=== PATIENT | female | born 1945 | race Caucasian/White ===

== ENCOUNTER 2020-07-12 15:33 | Inpatient (IN) | payer MEDICARE, BC ==
[~2020-07-12] VITALS: Ht 157.5 cm; Wt 74.4 kg
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
[2020-07-12] MEDS ORDERED: MECL-159 PO (16:15)
[2020-07-12] MEDS ORDERED: ASPI-869 PO (16:15)
[2020-07-12] MEDS ORDERED: OMEP20CA15 PO (16:15)
[2020-07-12] MEDS ORDERED: ZOLP12.52 PO (16:15)
[2020-07-12] MEDS ORDERED: LISI10TA29 PO (16:15)
[2020-07-12] MEDS ORDERED: FLUT1DIS28 INH (16:15)
[2020-07-12] MEDS ORDERED: ONDA4TAB11 PO (16:15)
[2020-07-12] MEDS ORDERED: METO25TA6 PO (16:15)
[2020-07-12] MEDS ORDERED: TRAM50TA2 PO (16:15)
[2020-07-12] MEDS ORDERED: CLON0.5T PO (16:15)
[2020-07-12] MEDS ORDERED: METO-295 PO (16:15)
[2020-07-12] MEDS ORDERED: SIMV40TA2 PO (16:15)
[2020-07-12] MEDS ORDERED: SENN-22 PO (16:15)
[2020-07-12] MEDS ORDERED: SERT100T PO (16:15)
[2020-07-12] MEDS ORDERED: QUET400T PO (16:15)
[2020-07-12] MEDS ORDERED: HYDR-3980 PO (16:15)
[2020-07-12] MEDS ORDERED: POTA500T PO (16:15)
[2020-07-12] MEDS ORDERED: VITAMIN D3 PO (16:15)
[2020-07-12] MEDS ORDERED: CYCL5TAB PO (16:15)
--- NOTE | 2020-07-12 16:44 | NUR ---
Called Shelby Callejas to inform her of pt. per Shelby, call back in a bit and speak to Rachele as she is almost off the clock
--- NOTE | 2020-07-12 17:08 | NUR ---
MD asked to have MHU called to clarify if patient still has to be seen by crisis team if she came in for voluntary psych admission. Per MHU, pt still has to be assessed. Called Rachele Smith at [phone] and went to voicemail,, left message for her to call back regarding patient.
--- NOTE | 2020-07-12 17:14 | NUR ---
pt complained of pain. 11/03. pt stated she has chronic back pain and she usually takes Hydrocodone 10mg. Dr. Jackson informed. also informed that we are awaiting call back from crisis team for eval. will attempt to call again in a few minutes.
[2020-07-12] MEDS ORDERED: HYDROCODONE/APAP 10-325 MG TABLET PO ONE (17:15)
[2020-07-12] MEDS ORDERED: HYDROCODONE/APAP 10-325 MG TABLET ONE (17:25)
--- NOTE | 2020-07-12 17:30 | NUR ---
pt stated that she has not eaten in a week. pt given dinner tray and eating in room.
--- NOTE | 2020-07-12 17:42 | NUR ---
Received call back from Rachele. Per Rachele, she is not on-call for crisis team and it's Marycarmen. Called Marycarmen Aguirre at [phone] to inform her of the patient. Marycarmen asked if patient's insurance is okay for admission and per admitting, pt's insurance is cleared for admission. Informed Marycarmen and she said she will be in to see pt in about an hour.
--- NOTE | 2020-07-12 18:06 | NUR ---
Asked pt if there was any family members she wanted to be notified of her admission. received contact information for her 2 sisters: Melisa Dougherty [phone] and Genoveva Hill [phone]. At 1752, attempted to call Melisa however went to voicemdil, left a message. At 1755, called Genoveva and informed her of pt's voluntary admission, verbalized understanding. At 1800, received called back from Melisa, also informed her of pt's voluntary admission, verbalized understanding. At 1805, left message for pt's primary physician Dr. Ori Do at [phone].
--- NOTE | 2020-07-12 19:09 | NUR ---
Marycarmen from crisis team at bedside to see pt. endorsed pt to street openings inspector.
--- NOTE | 2020-07-12 19:34 | NUR ---
Called for room, patient will be going to room 138-B [facility].
--- NOTE | 2020-07-12 19:45 | NUR ---
Checking patient chart, stated she has a potassium of 2.9. [facility] Emergency Notes stated her potassium was repleted at 3pm on 07/11/20. Notified MD Sawyer, awaiting potential orders.
--- NOTE | 2020-07-12 19:51 | NUR ---
Blood draw ordered by MD Sawyer to follow up on abnormal lab results for potassium.
--- NOTE | 2020-07-12 19:54 | NUR ---
distribution field technician in room to draw blood.
[2020-07-12 20:13] LABS: MAGNESIUM 1.4 mg/dL (1.8-2.4); POTASSIUM 4.4 mmol/L (3.5-5.1)
--- NOTE | 2020-07-12 20:17 | NUR ---
Potassium levels came back from lab to be 4.4.
--- NOTE | 2020-07-12 20:22 | NUR ---
Called for room d/t patient being moved to [facility] for psych overflow [id number].
--- NOTE | 2020-07-12 20:30 | NUR ---
Report given to ANGELITA Bright.
--- NOTE | 2020-07-12 20:34 | NUR ---
Pt. admitted to 3rd floor psych overflow 304, under care of Dr. Abraham and Bruce. Belongs List completed.
[2020-07-12] MEDS ORDERED: BLOOD SUGAR DIAGNOSTIC 1 EACH STRIP VI ONE (21:00)
[2020-07-12] MEDS ORDERED: MAG HYDROX/AL HYDROX/SIMETH 30 ML LIQUID UDC PO PRN (21:00)
--- NOTE | 2020-07-12 21:00 | NUR ---
Received pt from ER as a new admission for voluntary psych evaluation. Pt is AOx2/3, slightly confused as to where she is, but does know her name/. No signs of acute distress, pt is cooperative. I did notice bruising on her left thigh. No IV access. Will continue to monitor.
[2020-07-12 21:44] VITALS: BP 141/84
[2020-07-12] MEDS: ACETAMINOPHEN 325 MG TABLET PO PRN (22:04)
[2020-07-12] MEDS: TEMAZEPAM 7.5 MG CAPSULE PO PRN (22:04)
[2020-07-13] MEDS: LORAZEPAM 1 MG TABLET PO PRN ×3 (00:52→20:13)
--- NOTE | 2020-07-13 06:55 | NUR ---
End of Shift: Pt c/o pain in her chest/back, admin Tylenol, pain level decreased. Pt requested some sleeping medication, admin Restoril, some relief attained. Pt slept intermittently throughout the night. Vital signs WNL, patient kept comfortable. Safety precautions in place, bed is in low locked position. Will endorse to the oncoming day shift nurse.
[2020-07-13 07:33] VITALS: BP 99/60
[2020-07-13] MEDS: ACETAMINOPHEN 325 MG TABLET PO PRN (10:15)
[2020-07-13 11:54] VITALS: BP 119/63
--- NOTE | 2020-07-13 13:54 | NUR ---
Social Work Note/Substance Abuse Intervention: Patient was provided with a brief substance abuse intervention and referred to [facility] ([phone]), [facility] ([phone]), and [facility] ([phone]).
--- NOTE | 2020-07-13 13:54 | NUR ---
SW Family Contact: This SW contacted patient's sister Melisa ([phone]) but was unable to gather collateral. This SW left a voicemail to call back.
--- NOTE | 2020-07-13 13:54 | NUR ---
SW Initial Discharge Plan: Patient currently is homeless and will need a facility. Patient wanted this SW to find a facility. This SW contacted patient's sister Melisa ([phone]) but was unable to gather collateral. This SW left a voicemail to call back. This SW will work with the MD, treatment team, and patient to coordinate proper discharge.
[2020-07-13] MEDS ORDERED: ONDANSETRON ODT 4 MG TAB.RAPDIS SL PRN (14:45)
[2020-07-13] MEDS ORDERED: MECLIZINE HCL 25 MG TABLET PO PRN (14:45)
[2020-07-13] MEDS: PANTOPRAZOLE SODIUM 40 MG TABLET.DR PO SCH (15:03)
[2020-07-13] MEDS: CHOLECALCIFEROL 1,000 UNIT TABLET PO SCH (15:03)
--- NOTE | 2020-07-13 15:07 | NUR ---
SW Family Contact: This SW contacted patient's sister Melisa ([phone]) to gather collateral. Per Melisa, she stated that patient has no where to go and that she will need a nursing facility.
[2020-07-13 16:00] VITALS: BP 141/80
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
--- NOTE | 2020-07-13 16:14 | NUR ---
SW Family Contact: This SW spoke with patient's sister Nenita ([phone]) who is involved in patient's care. However, she stated she does not live local. Nenita stated she is concerned about patient and where she will stay. This SW discussed discharge and treatment plan with sister.
[2020-07-13] MEDS: METOPROLOL TARTRATE 25 MG TABLET PO SCH (16:16)
[2020-07-13] MEDS ORDERED: BISACODYL 10 MG SUPP.RECT RC ONE (19:50)
[2020-07-13 20:03] VITALS: BP 140/76
--- NOTE | 2020-07-13 20:15 | NUR ---
Received patient awake in bed. a/o x4. Patient given Ativan 1mg po prn for anxiety. Pt. says she is "thinking too much." Pt. verbalized the home situation and appears very worried and stressed out. vs wnl. Pt. requesting for dulcolax supp. Called out to Dr. Ramírez assembler convertible top and received order. Patient given supp. as ordered for constipation. Pt. denies any pain or discomfort. No resp. distress noted. All needs attended. Will continue to monitor and assess.
--- NOTE | 2020-07-13 21:30 | NUR ---
Dr. Lew came by to see patient. All needs attended.
[2020-07-13] MEDS: TEMAZEPAM 7.5 MG CAPSULE PO PRN (22:04)
[2020-07-13] MEDS: TRAZODONE 50 MG TABLET PO SCH (22:04)
--- NOTE | 2020-07-13 22:05 | NUR ---
Patient given Restoril 7.5mg po prn for sleep. Will continue to monitor and assess.
[2020-07-14 04:03] VITALS: BP 118/63
--- NOTE | 2020-07-14 06:15 | NUR ---
Patient asleep in bed. Slept 7 hours. Will continue to monitor and assess.
[2020-07-14 06:20] LABS: BILIRUBIN,TOTAL 0.2 mg/dL (0.2-1.0); CREATININE 0.7 mg/dL (0.6-1.3); POTASSIUM 3.6 mmol/L (3.5-5.1); TOTAL PROTEIN, SERUM 6.1 g/dL (6.4-8.2)
[2020-07-14] MEDS: PANTOPRAZOLE SODIUM 40 MG TABLET.DR PO SCH (06:25)
[2020-07-14 07:30] VITALS: BP 143/81
[2020-07-14] MEDS ORDERED: ASPIRIN EC 325 MG TABLET.DR PO ONE (09:00)
[2020-07-14] MEDS: CHOLECALCIFEROL 1,000 UNIT TABLET PO SCH (09:14)
[2020-07-14] MEDS: SENNOSIDES/DOCUSATE SODIUM TABLET PO SCH (09:14)
[2020-07-14] MEDS: HYDROCODONE/APAP 10-325 MG TABLET PO PRN (09:17)
[2020-07-14] MEDS: LISINOPRIL 10 MG TABLET PO SCH (09:18)
[2020-07-14] MEDS: METOPROLOL TARTRATE 25 MG TABLET PO SCH ×2 (09:19→17:06)
--- NOTE | 2020-07-14 09:24 | NUR ---
SW SNF Referral: This SW sent clinicals to priti Rehman ([phone]) for [facility] SNF placement. This SW faxed H & P notes, progress notes, and medication list.
--- NOTE | 2020-07-14 10:00 | NUR ---
CALLED AND NOTIFIED DR ROCK RE PATIENTS MAGNESSIUM LEVEL ON THE WAS 1.4 WITH NO REPLACEMENT ORDER STATED OKAY WILL CHECK.
--- NOTE | 2020-07-14 10:46 | NUR ---
SW SNF Contact: This SW sent clinicals to priti Rehman ([phone]) for [facility] SNF who stated patient is accepted.
[2020-07-14] MEDS: FLUTICASONE/VILANTEROL 1 EACH BLST.W.DEV INH SCH (15:26)
[2020-07-14 16:00] VITALS: BP 107/59
--- NOTE | 2020-07-14 17:28 | NUR ---
PATIENT HAS EPISODES FEELING VERY DEPRESSED TO THE EXTENT OF CRYING SHE ATTEMPTS TO TELL HER FAMILY STORY BUT REMAINS COMPLIANT AND COOPERATIVE WITH MEDICATIONS AND CARE DENIES SI AT THIS TIME.
[2020-07-14] MEDS: LORAZEPAM 1 MG TABLET PO PRN (18:20)
--- NOTE | 2020-07-14 18:21 | NUR ---
PATIENT STATED FEELING VERY ANXIOUS REQUESTED FOR CALMING MEDICATION MEDICATED WITH ATIVAN ORDERED PATIENT INSTRUCTED TO ATTEMPT TO RELAX AND VERBALISE FEELINGS MADE COMFORTABLE WILL CONTINUE TO OBSERVE.
[2020-07-14 20:04] VITALS: BP 113/64
[2020-07-14] MEDS: TRAZODONE 50 MG TABLET PO SCH (20:28)
[2020-07-14] MEDS: SIMVASTATIN 40 MG TABLET PO SCH (20:28)
[2020-07-14] MEDS ORDERED: TRAZODONE 100 MG TABLET PO SCH (21:30)
[2020-07-14] MEDS ORDERED: TRAZODONE 50 MG TABLET PO ONE (21:45)
[2020-07-14] MEDS: CLONAZEPAM 0.5 MG TABLET PO SCH (21:54)
[2020-07-14] MEDS: TEMAZEPAM 7.5 MG CAPSULE PO PRN (22:44)
--- NOTE | 2020-07-15 02:04 | NUR ---
AAOx3-4 Watching TV upon initial rounds. Seen by Dr Lew this evening. Patient seems depressed and said she couldn't have any good sleep. Ordered Trazadone 50 mg x1 and clonopin as well. Patient compliant with meds. Had received extra trazadone 50mg with her evening dose. Klonopin 0.25 also given as well. Needs attended. VSS. Will monitor patient. Continent of bowel and bladder. No BM noted this shift. Kept comfortable.
[2020-07-15 04:03] VITALS: BP 107/56
[2020-07-15] MEDS: PANTOPRAZOLE SODIUM 40 MG TABLET.DR PO SCH (06:11)
--- NOTE | 2020-07-15 06:30 | NUR ---
End of shift notes: Slept for seven hours throughout the shift. Seen by Dr Lew. Meds changed like per MD's order. Had trazadone 50mg po extra dose plus clonopin 15 mg. Denies any pain nor any discomfort. Will monitor patient. No behavioral issues noted.
[2020-07-15] MEDS: CHOLECALCIFEROL 1,000 UNIT TABLET PO SCH (08:02)
[2020-07-15] MEDS: SENNOSIDES/DOCUSATE SODIUM TABLET PO SCH (08:02)
[2020-07-15] MEDS: METOPROLOL TARTRATE 25 MG TABLET PO SCH ×2 (08:03→16:06)
[2020-07-15] MEDS: LISINOPRIL 10 MG TABLET PO SCH (08:03)
[2020-07-15] MEDS: CLONAZEPAM 0.5 MG TABLET PO SCH ×2 (08:03→16:06)
[2020-07-15] MEDS: FLUTICASONE/VILANTEROL 1 EACH BLST.W.DEV INH SCH (08:07)
[2020-07-15] MEDS: ASPIRIN EC 325 MG TABLET.DR PO SCH (08:07)
[2020-07-15] MEDS: MAGNESIUM HYDROXIDE 30 ML LIQUID UDC PO PRN (11:21)
[2020-07-15 12:29] VITALS: BP 106/55
[2020-07-15] MEDS: LORAZEPAM 1 MG TABLET PO PRN (14:55)
--- NOTE | 2020-07-15 14:56 | NUR ---
Ativan 1mg Po given per md orders pt is crying and feeling hopelessness
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
[2020-07-15 16:10] VITALS: BP 117/71
[2020-07-15 20:00] VITALS: BP 104/67
[2020-07-15] MEDS: TRAZODONE 100 MG TABLET PO SCH (20:39)
[2020-07-15] MEDS: SIMVASTATIN 40 MG TABLET PO SCH (20:39)
[2020-07-15] MEDS: TEMAZEPAM 7.5 MG CAPSULE PO PRN (21:55)
[2020-07-16] MEDS: LORAZEPAM 1 MG TABLET PO PRN ×2 (00:22→23:46)
[2020-07-16] MEDS: ACETAMINOPHEN 325 MG TABLET PO PRN (00:23)
[2020-07-16 04:00] VITALS: BP 101/57
[2020-07-16] MEDS: PANTOPRAZOLE SODIUM 40 MG TABLET.DR PO SCH (06:38)
--- NOTE | 2020-07-16 06:40 | NUR ---
PATIENT ASLEEP BUT AROUSABLE, NO COMPLAIN OF PAIN, PATIENT WITH EPISODE OF ANXIETY AND INABILITY TO SLEEP, MEDICATED ORDERED WITH NO ADVERSE REACTION. PATIENT CALM, COOPERATIVE WITH CARE AND MEDICATION, CONT TO MONITOR.
--- NOTE | 2020-07-16 07:30 | NUR ---
Received patient asleep in bed. on room air.no signs of acute distress. bed locked and in low position. side rails up x 3. call light within reach. will continue to monitor.
[2020-07-16 08:00] VITALS: BP 122/66
[2020-07-16] MEDS: SENNOSIDES/DOCUSATE SODIUM TABLET PO SCH (08:23)
[2020-07-16] MEDS: CLONAZEPAM 0.5 MG TABLET PO SCH ×2 (08:24→16:20)
[2020-07-16] MEDS: ASPIRIN EC 325 MG TABLET.DR PO SCH (08:24)
[2020-07-16] MEDS: CHOLECALCIFEROL 1,000 UNIT TABLET PO SCH (08:24)
[2020-07-16] MEDS: LISINOPRIL 10 MG TABLET PO SCH (08:30)
[2020-07-16] MEDS: METOPROLOL TARTRATE 25 MG TABLET PO SCH ×2 (08:30→16:38)
[2020-07-16] MEDS: FLUTICASONE/VILANTEROL 1 EACH BLST.W.DEV INH SCH (08:33)
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
--- NOTE | 2020-07-16 11:05 | NUR ---
Individual Therapy: green chain worker met with patient for brief counseling to help address patient's presenting problem depression. Patient appeared sad and depressed. She was tearful at this time and anxious. She stated she feels hopeless and helpless of her husbands situation and that she feels "heartbroken". Patient actively listened and helped patient explore her emotions.
[2020-07-16] MEDS: TRAMADOL HCL 50 MG TABLET PO PRN (11:54)
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
[2020-07-16 16:00] VITALS: BP 108/58
[2020-07-16] MEDS: HYDROCODONE/APAP 10-325 MG TABLET PO PRN (18:27)
--- NOTE | 2020-07-16 18:35 | NUR ---
Patient awake in bed. AOx4. On room air. no signs of acute distress. Patient verbalizes feelings of hopelessness. Encouraged expression of feelings. Patient stated she felt a little relief after talking about feelings. Patient stated she wanted to speak to someone about discharge. Informed patient Upset Operator will be informed to talk to her about discharge concerns. Patient denies SI/HI. Patient compliant with care and medications. Will endorse to incoming shift for continuity of care.
--- NOTE | 2020-07-16 19:30 | NUR ---
Received pt in bed, awake and verbally responsive. No s/s of respiratory distress, no pain or discomfort reported. Patient denies SI/HI. Safety measures initiated, will continue to monitor.
[2020-07-16 20:00] VITALS: BP 101/55
[2020-07-16] MEDS: SIMVASTATIN 40 MG TABLET PO SCH (21:21)
[2020-07-16] MEDS: TRAZODONE 100 MG TABLET PO SCH (21:21)
[2020-07-16] MEDS: ZOLPIDEM 5 MG TABLET PO PRN (22:13)
[2020-07-17] MEDS: ACETAMINOPHEN 325 MG TABLET PO PRN ×2 (00:39→23:53)
[2020-07-17] MEDS ORDERED: diphenhydrAMINE 25 MG CAP PO ONE ×2 (03:15)
[2020-07-17] MEDS: CYCLOBENZAPRINE HCL 10 MG TABLET PO PRN (05:17)
[2020-07-17] MEDS: PANTOPRAZOLE SODIUM 40 MG TABLET.DR PO SCH (06:30)
--- NOTE | 2020-07-17 06:43 | NUR ---
Pt in bed, A&Ox4. No s/s of respiratory distress, denies pain or discomfort. Encouraged to express feelings. Complained she haven't slept well. Denies any suicidal ideation or thoughts. Medications tolerated well. Safety measures maintained at all times, all needs attended.
--- NOTE | 2020-07-17 07:35 | NUR ---
Received pt. resting in bed. AOx4. on room air. no signs of acute distress. patient has no complaints of pain or discomfort at this time. bed locked and in low position for safety. will continue to monitor.
[2020-07-17] MEDS: ASPIRIN EC 325 MG TABLET.DR PO SCH (09:29)
[2020-07-17] MEDS: SENNOSIDES/DOCUSATE SODIUM TABLET PO SCH (09:29)
[2020-07-17] MEDS: LISINOPRIL 10 MG TABLET PO SCH (09:29)
[2020-07-17] MEDS: CHOLECALCIFEROL 1,000 UNIT TABLET PO SCH (09:29)
[2020-07-17] MEDS: METOPROLOL TARTRATE 25 MG TABLET PO SCH ×2 (09:30→16:34)
[2020-07-17] MEDS: CLONAZEPAM 0.5 MG TABLET PO SCH ×2 (09:30→16:33)
[2020-07-17] MEDS: FLUTICASONE/VILANTEROL 1 EACH BLST.W.DEV INH SCH (09:34)
--- NOTE | 2020-07-17 11:33 | NUR ---
WOUND CARE CONSULT: PT PRESENTS WITH PINK RAISED AREAS TO CHIN, PRESENT ON ADMISSION. PT IS SCRATCHING AT HER CHIN. DEFER TO PMD FOR SKIN CONDITION, UNKNOWN ETIOLOGY. RN TO DISCUSS WITH PMD TODAY. 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 WILL SEE PRN. CURRENT LUC SCORE IS 20.
[2020-07-17 12:00] VITALS: BP 109/63
--- NOTE | 2020-07-17 13:02 | NUR ---
Individual Therapy: concrete worker met with patient for brief counseling to help address patient's presenting problem depression. Patient appeared depressed and sad. She did appear withdrawn. This SW encouraged pt to interact and engage with peers/group. Patient refused and stated "I prefer to stay in bed and I feel sad". This SW helped pt express her emotions and actively listened to this SW.
[2020-07-17] MEDS: LORAZEPAM 1 MG TABLET PO PRN ×2 (13:18→23:52)
[2020-07-17] MEDS: NUTRISOURCE FIBER 4 GM PACKET PO SCH ×2 (13:18→16:34)
[2020-07-17 16:00] VITALS: BP 106/64
--- NOTE | 2020-07-17 17:28 | NUR ---
Gps/Value Stream Leader- Received report from Echo De Guzman. Patient preferred to eat dinner first before coming down to MHU
--- NOTE | 2020-07-17 18:15 | NUR ---
Transferred patient to MHU. Patient alert and oriented x 4. on room air. no signs of acute distress. patient belongings brought to MHU with patient. Patient report given to MHU nurse for continuity of care.
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
[2020-07-17 20:01] VITALS: BP 117/77
[2020-07-17] MEDS: SIMVASTATIN 40 MG TABLET PO SCH (20:26)
[2020-07-17] MEDS: TRAZODONE 100 MG TABLET PO SCH (20:26)
[2020-07-17] MEDS: ZOLPIDEM 5 MG TABLET PO PRN (21:54)
[2020-07-17] MEDS: diphenhydrAMINE 25 MG CAP PO PRN (22:45)
--- NOTE | 2020-07-18 00:37 | NUR ---
RECEIVED PATIENT AWAKE. SHE APPEARED ANXIOUS BUT DENIED SI/HI. ADMITTED TO BEING SAD OCCASIONALLY AND INABILITY TO SLEEP. AFTER ASSESSMENT SLEEP MEDICATION WAS GIVEN WITH LITTLE EFFECT. SHE HAD ONE EPISODE OF ANXIETY AND WAS GIVEN TAB LORAZEPAM WITH GOOD EFFECT. SHE IS CALM AND COOPERATIVE WITH CARE AND MEDICATION. VISUAL CHECKS MADE ON HER FOR SAFETY. WILL CONTINUE TO MONITOR.
--- NOTE | 2020-07-18 06:33 | NUR ---
SHE SLEPT FOR 4;30 HOURS.
[2020-07-18] MEDS: PANTOPRAZOLE SODIUM 40 MG TABLET.DR PO SCH (06:42)
[2020-07-18 07:30] VITALS: BP 141/68
[2020-07-18 08:00] LABS: THYROID STIMULATING HORMONE 1.899 mIU/mL (0.358-3.740)
[2020-07-18 08:15] LABS: MAGNESIUM 1.9 mg/dL (1.8-2.4); PHOSPHOROUS 4.5 mg/dL (2.5-4.9)
[2020-07-18] MEDS: ASPIRIN EC 325 MG TABLET.DR PO SCH (08:35)
[2020-07-18] MEDS: CHOLECALCIFEROL 1,000 UNIT TABLET PO SCH (08:35)
[2020-07-18] MEDS: CLONAZEPAM 0.5 MG TABLET PO SCH ×2 (08:35→16:46)
[2020-07-18] MEDS: LISINOPRIL 10 MG TABLET PO SCH (08:36)
[2020-07-18] MEDS: METOPROLOL TARTRATE 25 MG TABLET PO SCH ×2 (08:36→16:45)
[2020-07-18] MEDS: HYDROCODONE/APAP 10-325 MG TABLET PO PRN ×2 (08:49→16:45)
[2020-07-18] MEDS: FLUTICASONE/VILANTEROL 1 EACH BLST.W.DEV INH SCH (09:31)
[2020-07-18] MEDS: SENNOSIDES/DOCUSATE SODIUM TABLET PO SCH (09:32)
[2020-07-18] MEDS: NUTRISOURCE FIBER 4 GM PACKET PO SCH ×3 (09:32→17:00)
[2020-07-18] MEDS: TRAMADOL HCL 50 MG TABLET PO PRN (13:36)
[2020-07-18] MEDS: LORAZEPAM 1 MG TABLET PO PRN ×2 (13:42→22:18)
[2020-07-18 16:00] VITALS: BP 128/74
[2020-07-18 20:05] VITALS: BP 142/72
[2020-07-18] MEDS: TRAZODONE 100 MG TABLET PO SCH (20:23)
[2020-07-18] MEDS: SIMVASTATIN 40 MG TABLET PO SCH (20:23)
[2020-07-18] MEDS: ZOLPIDEM 5 MG TABLET PO PRN (21:16)
[2020-07-18] MEDS: diphenhydrAMINE 25 MG CAP PO PRN (22:18)
--- NOTE | 2020-07-19 05:49 | NUR ---
Patient slept 4 hours and 30 minutes. All needs attended.
[2020-07-19] MEDS: PANTOPRAZOLE SODIUM 40 MG TABLET.DR PO SCH (06:01)
[2020-07-19 07:30] VITALS: BP 102/51
[2020-07-19] MEDS: SENNOSIDES/DOCUSATE SODIUM TABLET PO SCH (08:29)
[2020-07-19] MEDS: CLONAZEPAM 0.5 MG TABLET PO SCH ×2 (08:29→17:30)
[2020-07-19] MEDS: ASPIRIN EC 325 MG TABLET.DR PO SCH (08:30)
[2020-07-19] MEDS: FLUTICASONE/VILANTEROL 1 EACH BLST.W.DEV INH SCH (08:30)
[2020-07-19] MEDS: METOPROLOL TARTRATE 25 MG TABLET PO SCH ×2 (08:31→17:30)
[2020-07-19] MEDS: LISINOPRIL 10 MG TABLET PO SCH (08:31)
[2020-07-19] MEDS: NUTRISOURCE FIBER 4 GM PACKET PO SCH ×3 (08:39→17:30)
[2020-07-19] MEDS: CHOLECALCIFEROL 1,000 UNIT TABLET PO SCH (08:41)
[2020-07-19] MEDS: HYDROCODONE/APAP 10-325 MG TABLET PO PRN ×2 (08:43→18:30)
[2020-07-19 11:31] LABS: *BILIRUBIN,URIN NEGATIVE (NEGATIVE); *BLOOD, URINE NEGATIVE (NEGATIVE); *CLARITY,URINE CLEAR (CLEAR); *COLOR,URINE YELLOW (YELLOW); *KETONES,URINE NEGATIVE (NEGATIVE); *UROBILINOGEN,URINE 0.2 E.U./dl (NORMAL); LEUKOCYTE ESTERASE ,URINE NEGATIVE (NEGATIVE); NITRITE, URINE NEGATIVE (NEGATIVE); UGLUCOSE NEGATIVE (NEGATIVE)
[2020-07-19 16:00] VITALS: BP 115/68
[2020-07-19] MEDS: LORAZEPAM 1 MG TABLET PO PRN (18:30)
[2020-07-19 20:02] VITALS: BP 152/74
[2020-07-19] MEDS: SIMVASTATIN 40 MG TABLET PO SCH (20:42)
[2020-07-19] MEDS: TRAZODONE 100 MG TABLET PO SCH (20:43)
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
[2020-07-19] MEDS: ZOLPIDEM 5 MG TABLET PO PRN (22:14)
[2020-07-19] MEDS: diphenhydrAMINE 25 MG CAP PO PRN (23:18)
[2020-07-20] MEDS: LORAZEPAM 1 MG TABLET PO PRN ×2 (00:57→12:03)
[2020-07-20] MEDS: PANTOPRAZOLE SODIUM 40 MG TABLET.DR PO SCH (06:42)
--- NOTE | 2020-07-20 06:54 | NUR ---
patient slept for approx 6.30 hrs through the night. Will continue to monitor.
[2020-07-20 07:19] LABS: BASOPHILS % (AUTO) 0.9 % (0.0-2.0); EOSINOPHILS # (AUTO) 0.1 K/uL (0.0-0.7); EOSINOPHILS % (AUTO) 1.6 % (0.0-7.0); HEMATOCRIT 37.5 % (31.2-41.9); HEMOGLOBIN 12.6 g/dL (10.9-14.3); LYMPHOCYTES # (AUTO) 2.2 K/uL (20.0-40.0); LYMPHOCYTES % (AUTO) 45.2 % (20.5-51.5); MEAN CORPUSCULAR HEMOGLOBIN 30.8 uug (24.7-32.8); MEAN CORPUSCULAR HGB CONC 34 g/dL (32.3-35.6); MEAN CORPUSCULAR VOLUME 91.6 fL (75.5-95.3); MONOCYTES # (AUTO) 0.6 K/uL (2.0-10.0); MONOCYTES % (AUTO) 12.8 % (0.0-11.0); NEUTROPHILS # (AUTO) 1.9 K/uL (1.8-8.9); NEUTROPHILS % (AUTO) 39.5 % (38.5-71.5); PLATELET COUNT (AUTO) 234 K/uL (179-408); RED BLOOD CELL COUNT(AUTO) 4.09 MIL/uL (3.63-4.92); WHITE BLOOD COUNT (AUTO) 4.8 K/uL (3.8-11.8)
--- NOTE | 2020-07-20 07:30 | NUR ---
Received report from ANGELITA Lozano. All questions, comments, and concerns were addressed. Received patient awake, in her assigned room. Bed is in low and locked position.
[2020-07-20 07:33] LABS: BILIRUBIN,TOTAL 0.3 mg/dL (0.2-1.0); CREATININE 0.8 mg/dL (0.6-1.3); MAGNESIUM 1.7 mg/dL (1.8-2.4); PHOSPHOROUS 4.5 mg/dL (2.5-4.9); POTASSIUM 4.1 mmol/L (3.5-5.1); TOTAL PROTEIN, SERUM 6.1 g/dL (6.4-8.2)
[2020-07-20] MEDS: ASPIRIN EC 325 MG TABLET.DR PO SCH (08:29)
[2020-07-20 08:30] VITALS: BP 90/48
[2020-07-20] MEDS: METOPROLOL TARTRATE 25 MG TABLET PO SCH ×2 (08:30→16:01)
[2020-07-20] MEDS: CLONAZEPAM 0.5 MG TABLET PO SCH ×2 (08:30→16:52)
[2020-07-20] MEDS: SENNOSIDES/DOCUSATE SODIUM TABLET PO SCH (08:30)
[2020-07-20] MEDS: CHOLECALCIFEROL 1,000 UNIT TABLET PO SCH (08:30)
[2020-07-20] MEDS: HYDROCODONE/APAP 10-325 MG TABLET PO PRN ×3 (08:31→22:10)
[2020-07-20] MEDS: FLUTICASONE/VILANTEROL 1 EACH BLST.W.DEV INH SCH (08:32)
[2020-07-20] MEDS: NUTRISOURCE FIBER 4 GM PACKET PO SCH ×3 (08:40→17:00)
[2020-07-20] MEDS ORDERED: MAGNESIUM OXIDE 400 MG TABLET PO ONE (09:15)
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
[2020-07-20 12:00] VITALS: BP 109/63
[2020-07-20] MEDS: TRAMADOL HCL 50 MG TABLET PO PRN (12:44)
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
[2020-07-20 15:20] VITALS: BP 108/55
[2020-07-20 17:41] LABS: NEUTROPHILS % (MANUAL) 37 % (42-75)
[2020-07-20 17:42] LABS: BAND % (MANUAL) 0 % (0-10); EOSINOPHILS % (MANUAL) 2 % (0-8); LYMPHOCYTES % (MANUAL) 51 % (20-40); MONOCYTES % (MANUAL) 10 % (2-10)
--- NOTE | 2020-07-20 19:00 | NUR ---
Patient alert oriented, patient cooperative with care and medication, patient still has episode of anxiety manifested by generalized body and head pain and complain of insomnia, will medicated as ordered, cont to monitor.
[2020-07-20 20:01] VITALS: BP 128/81
[2020-07-20] MEDS: TRAZODONE 100 MG TABLET PO SCH (20:17)
[2020-07-20] MEDS: SIMVASTATIN 40 MG TABLET PO SCH (20:17)
[2020-07-20] MEDS ORDERED: ZOLPIDEM 5 MG TABLET PO PRN ×2 (20:30)
--- NOTE | 2020-07-20 22:15 | NUR ---
patient still awake, ambien not effective at this time. offer food and juice. Patient complain of back pain 8/10 given narco as ordered cont to monitor.
--- NOTE | 2020-07-21 05:21 | NUR ---
Patient stayed in her room most of the night, slept 7.5 hrs, patient calm and cooperative, cont to monitor.
[2020-07-21] MEDS: PANTOPRAZOLE SODIUM 40 MG TABLET.DR PO SCH (06:18)
[2020-07-21 07:30] VITALS: BP 127/60
[2020-07-21] MEDS: FLUTICASONE/VILANTEROL 1 EACH BLST.W.DEV INH SCH (08:36)
[2020-07-21] MEDS: ASPIRIN EC 325 MG TABLET.DR PO SCH (08:36)
[2020-07-21] MEDS: METOPROLOL TARTRATE 25 MG TABLET PO SCH ×2 (08:37→16:43)
[2020-07-21] MEDS: CLONAZEPAM 0.5 MG TABLET PO SCH ×2 (08:37→16:42)
[2020-07-21] MEDS: CHOLECALCIFEROL 1,000 UNIT TABLET PO SCH (08:38)
[2020-07-21] MEDS: SENNOSIDES/DOCUSATE SODIUM TABLET PO SCH (08:38)
[2020-07-21] MEDS: NUTRISOURCE FIBER 4 GM PACKET PO SCH ×3 (08:52→16:43)
--- NOTE | 2020-07-21 09:00 | NUR ---
Received pt in assigned room, A&Ox4, able to verbalize needs. Calm at this time, no acute distress noted. Pt denies pain/discomfort at this time. Due medications given per order, pt adherent with prescribed medication regimen. Upon interview, pt denied SI/HI/AH/VH, was able to verbally contract for safety. Pt able to perform self care and ADLs. Pt able to safely ambulate. Safety ensured. Pt to be transferred to Med/Surg unit this am. Will continue to monitor.
--- NOTE | 2020-07-21 10:00 | NUR ---
Pt transferred to Med/Surg unit. Report given by Charge Nurse Fuad to MS nurse.
--- NOTE | 2020-07-21 10:00 | NUR ---
RECEIVED PATIENT FROM MENTAL HEALTH UNIT AN OVER FLOW 75 YEARS OLD ALERT AND ORIENTED AT THIS TIME WITH DX OF PSYCHOSIS PLACED INTO BED FIXED AND MADE COMFORTABLE DENIES SI WILL CONTINUE TO PROVIDE SAFE AND THERAPEUTIC ENVIRONMENT AT ALL TIMES.
[2020-07-21] MEDS: SERTRALINE HCL 50 MG TABLET PO SCH (10:34)
[2020-07-21] MEDS: HYDROCODONE/APAP 10-325 MG TABLET PO PRN (10:46)
--- NOTE | 2020-07-21 10:46 | NUR ---
PATIENT C/O HAVING SEVERE GENERALISED PAIN ESPECIALLY IN THE HEAD MEDICATED WITH NORCO ORDERED MADE COMFORTABLE WILL CONTINUE TO OBSERVE.
--- NOTE | 2020-07-21 11:52 | NUR ---
SEEN AND EXAMINED BY [facility] PROVIDER WITH NEW ORDERS AND NOTED.
[2020-07-21 15:41] VITALS: BP 115/67
[2020-07-21] MEDS: ACETAMINOPHEN 325 MG TABLET PO PRN (18:11)
--- NOTE | 2020-07-21 18:11 | NUR ---
STATED HAS A HEADACHE REQUESTED FOR TYLENOL GIVEN ORDERED MADE COMFORTABLE COMPLIANT WITH MEDICATIONS AND CARE AT THIS TIME.
[2020-07-21 20:00] VITALS: BP 131/68
[2020-07-21] MEDS: TRAZODONE 100 MG TABLET PO SCH (20:37)
[2020-07-21] MEDS: SIMVASTATIN 40 MG TABLET PO SCH (20:37)
[2020-07-21] MEDS: ZOLPIDEM 5 MG TABLET PO PRN (22:06)
[2020-07-21] MEDS: LORAZEPAM 1 MG TABLET PO PRN (23:41)
[2020-07-22 04:00] VITALS: BP 114/64
[2020-07-22] MEDS: LORAZEPAM 1 MG TABLET PO PRN ×3 (04:33→22:44)
--- NOTE | 2020-07-22 05:38 | NUR ---
Patient slept intermittently.On RA.No acute distress noted.Denies SI/HI.Patient c/o feeling hopelessness ,depressed and anxious.Re-assurance rendered.Ambien was given per patient request and Ativan given.Afebrile.Vss.All needs anticipated and met accordingly.
[2020-07-22] MEDS: PANTOPRAZOLE SODIUM 40 MG TABLET.DR PO SCH (06:11)
[2020-07-22 07:53] VITALS: BP 119/65
[2020-07-22] MEDS: FLUTICASONE/VILANTEROL 1 EACH BLST.W.DEV INH SCH (09:00)
[2020-07-22] MEDS: SENNOSIDES/DOCUSATE SODIUM TABLET PO SCH (09:09)
[2020-07-22] MEDS: ASPIRIN EC 325 MG TABLET.DR PO SCH (09:10)
[2020-07-22] MEDS: CHOLECALCIFEROL 1,000 UNIT TABLET PO SCH (09:10)
[2020-07-22] MEDS: SERTRALINE HCL 50 MG TABLET PO SCH (09:10)
[2020-07-22] MEDS: METOPROLOL TARTRATE 25 MG TABLET PO SCH ×3 (09:10→17:30)
[2020-07-22] MEDS: CLONAZEPAM 0.5 MG TABLET PO SCH ×2 (09:10→17:11)
[2020-07-22] MEDS: NUTRISOURCE FIBER 4 GM PACKET PO SCH ×3 (09:11→17:12)
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
[2020-07-22] MEDS: HYDROCODONE/APAP 10-325 MG TABLET PO PRN (14:23)
[2020-07-22 16:00] VITALS: BP 107/57
[2020-07-22] MEDS: TRAMADOL HCL 50 MG TABLET PO PRN (17:12)
--- NOTE | 2020-07-22 18:51 | NUR ---
pt calm and cooperative. Patient c/o feeling hopelessness, depressed and anxious. Re-assurance rendered. c/o pain and anxiety PRN pain medication and antivan was given as ordered. Afebrile. frequent visual check done. bed at lowest position and lock. needs attended to and met. will continue to monitor.
--- NOTE | 2020-07-22 19:30 | NUR ---
Received patient lying in bed. AAOx4. In no acute distress. No behavioral issues noted. Calm and pleasant. Denies SI/HI. Denies any pain or SOB. Safety measure initiated.
--- NOTE | 2020-07-22 19:47 | NUR ---
Dr. Lew into visit.
[2020-07-22 20:06] VITALS: BP 107/65
[2020-07-22] MEDS: SIMVASTATIN 40 MG TABLET PO SCH (20:09)
[2020-07-22] MEDS: TRAZODONE 100 MG TABLET PO SCH (20:09)
[2020-07-22] MEDS: ZOLPIDEM 5 MG TABLET PO PRN (21:19)
--- NOTE | 2020-07-22 22:45 | NUR ---
Patient reported Ambien not effective for sleep. Requested Ativan. Will provide per order.
[2020-07-23 04:06] VITALS: BP 102/55
--- NOTE | 2020-07-23 06:03 | NUR ---
Slept about 6 hours.
[2020-07-23] MEDS: PANTOPRAZOLE SODIUM 40 MG TABLET.DR PO SCH (06:11)
--- NOTE | 2020-07-23 07:30 | NUR ---
START OF SHIFT: received change of shift report, pt a/o x4, on room air, no signs of distress noted, pt reports generalized pain 10/10, medication given as ordered, pt ambulatory with BRP, pt cooperative. bed in low and locked position, safety precautions in place, will continue to monitor.
--- NOTE | 2020-07-23 08:39 | NUR ---
Resources: This SW provided [place] resources: [facility] [employer] [employer] ([phone]), [employer] ([phone]), [facility] ([phone]), [place], [facility] ([phone]).
[2020-07-23] MEDS: FLUTICASONE/VILANTEROL 1 EACH BLST.W.DEV INH SCH (08:44)
[2020-07-23] MEDS: SERTRALINE HCL 100 MG TABLET PO SCH (08:45)
[2020-07-23] MEDS: CHOLECALCIFEROL 1,000 UNIT TABLET PO SCH (08:45)
[2020-07-23] MEDS: ASPIRIN EC 325 MG TABLET.DR PO SCH (08:45)
[2020-07-23] MEDS: CLONAZEPAM 0.5 MG TABLET PO SCH ×2 (08:45→16:57)
[2020-07-23] MEDS: SENNOSIDES/DOCUSATE SODIUM TABLET PO SCH (08:45)
[2020-07-23] MEDS: HYDROCODONE/APAP 10-325 MG TABLET PO PRN ×2 (09:33→15:13)
[2020-07-23] MEDS: NUTRISOURCE FIBER 4 GM PACKET PO SCH ×3 (09:34→16:58)
[2020-07-23] MEDS: METOPROLOL TARTRATE 25 MG TABLET PO SCH ×2 (09:38→16:59)
--- NOTE | 2020-07-23 10:41 | NUR ---
SW Family Contact: This SW left a voicemail for patient's sister Nenita ([phone]) and stated patient will be discharged to [facility] on 07/27/20Monday and this SW requested for sister to pass this message to patient's other sister Melisa.
[2020-07-23 11:26] VITALS: BP 109/58
[2020-07-23 14:53] VITALS: BP 95/43
--- NOTE | 2020-07-23 14:55 | NUR ---
Individual Therapy: hand worker met with patient for brief counseling to help address patient's presenting problem depression. Patient appeared less depressed and sad. Patient stated that she has become stronger slowly and wants to overcome this divorce. SW actively listened and provided emotional support.
[2020-07-23] MEDS: LORAZEPAM 1 MG TABLET PO PRN ×2 (15:12→20:14)
--- NOTE | 2020-07-23 15:25 | NUR ---
TRANSFER: pt transferred to MHU room 140B, report given to MILAGROS Rosario. pt is a/ox4 on room air, no signs of distress, pain was 9/10, medication given as ordered. Ativan prn given at 1515. pt is ambulatory, vitals WNL. pt taken to MHU via wheelchair with chart.
[2020-07-23 16:00] VITALS: BP 103/62
[2020-07-23] MEDS: TRAMADOL HCL 50 MG TABLET PO PRN (16:57)
--- NOTE | 2020-07-23 19:30 | NUR ---
Received pt in bed, A&Ox4, calm, able to make needs known. Denies any pain or discomfort. no signs of acute distress. Safety measures initiated, will continue to monitor.
[2020-07-23 20:10] VITALS: BP 106/70
[2020-07-23] MEDS: SIMVASTATIN 40 MG TABLET PO SCH (20:12)
[2020-07-23] MEDS: TRAZODONE 100 MG TABLET PO SCH (20:14)
--- NOTE | 2020-07-24 06:19 | NUR ---
At the beginning of the shift, pt express some anxiety of being sent to a shelter. Reassurance was provided. Pt slept for 7 hours. No s/s of acute distress, denies pain or discomfort. Cooperative with care, compliant with medications. Safety measures maintained at all times.
[2020-07-24] MEDS: PANTOPRAZOLE SODIUM 40 MG TABLET.DR PO SCH (06:22)
[2020-07-24] MEDS: TRAMADOL HCL 50 MG TABLET PO PRN ×2 (06:31→13:47)
[2020-07-24 07:30] VITALS: BP 102/53
[2020-07-24] MEDS: SERTRALINE HCL 100 MG TABLET PO SCH (08:53)
[2020-07-24] MEDS: CLONAZEPAM 0.5 MG TABLET PO SCH ×2 (08:54→16:00)
[2020-07-24] MEDS: METOPROLOL TARTRATE 25 MG TABLET PO SCH ×2 (08:54→16:00)
[2020-07-24] MEDS: ASPIRIN EC 325 MG TABLET.DR PO SCH (08:54)
[2020-07-24] MEDS: CHOLECALCIFEROL 1,000 UNIT TABLET PO SCH (08:54)
[2020-07-24] MEDS: FLUTICASONE/VILANTEROL 1 EACH BLST.W.DEV INH SCH (08:54)
[2020-07-24] MEDS: NUTRISOURCE FIBER 4 GM PACKET PO SCH ×3 (08:59→16:01)
[2020-07-24] MEDS: SENNOSIDES/DOCUSATE SODIUM TABLET PO SCH (09:00)
[2020-07-24] MEDS: HYDROCODONE/APAP 10-325 MG TABLET PO PRN (09:21)
--- NOTE | 2020-07-24 11:22 | NUR ---
SW Family Contact: This SW spoke with patient's sister Nenita ([phone]) and discussed treatment and discharge plan. This SW advised that patient will be discharged Thursday 07/27 to [facility] and sister is agreeable with this plan.
[2020-07-24] MEDS: LORAZEPAM 1 MG TABLET PO PRN ×2 (13:45→20:34)
[2020-07-24 16:20] VITALS: BP 130/74
[2020-07-24] MEDS: TRAZODONE 100 MG TABLET PO SCH (20:26)
[2020-07-24] MEDS: SIMVASTATIN 40 MG TABLET PO SCH (20:26)
[2020-07-24 20:50] VITALS: BP 107/62
[2020-07-24] MEDS: ZOLPIDEM 5 MG TABLET PO PRN (21:20)
--- NOTE | 2020-07-25 05:47 | NUR ---
Patient slept 7.15 hours. During the beginning of the shift, patient came out of her room a couple of times asking for different PRN medications. Ativan, Ambien and Deland. Med seeking behavior.Community Service Organization Director educated the patient on the importance of spreading out those medications. Patient fell asleep after the Ambien and did not need the Deland at all. Community Service Organization Director engaged in a conversation with the patient where she verbalized being anxious to going to a SNF on Monday. Community Service Organization Director was a active listener and provided reassurance to the patient. Continuing to monitor patients anxiety, depression and for safety. The patient denies SI at this time.
[2020-07-25] MEDS: PANTOPRAZOLE SODIUM 40 MG TABLET.DR PO SCH (06:13)
[2020-07-25 08:30] VITALS: BP 102/60
[2020-07-25] MEDS: SENNOSIDES/DOCUSATE SODIUM TABLET PO SCH (08:55)
[2020-07-25] MEDS: CLONAZEPAM 0.5 MG TABLET PO SCH ×2 (08:55→16:01)
[2020-07-25] MEDS: SERTRALINE HCL 100 MG TABLET PO SCH (08:55)
[2020-07-25] MEDS: ASPIRIN EC 325 MG TABLET.DR PO SCH (08:55)
[2020-07-25] MEDS: CHOLECALCIFEROL 1,000 UNIT TABLET PO SCH (08:55)
[2020-07-25] MEDS: METOPROLOL TARTRATE 25 MG TABLET PO SCH ×2 (08:56→16:02)
[2020-07-25] MEDS: FLUTICASONE/VILANTEROL 1 EACH BLST.W.DEV INH SCH (08:56)
[2020-07-25] MEDS: NUTRISOURCE FIBER 4 GM PACKET PO SCH ×3 (08:57→16:02)
[2020-07-25] MEDS: HYDROCODONE/APAP 10-325 MG TABLET PO PRN ×2 (12:29→20:19)
[2020-07-25] MEDS: TRAMADOL HCL 50 MG TABLET PO PRN ×2 (14:17→21:57)
[2020-07-25 15:52] VITALS: BP 111/48
[2020-07-25 20:00] VITALS: BP 115/60
[2020-07-25] MEDS: SIMVASTATIN 40 MG TABLET PO SCH (20:06)
[2020-07-25] MEDS: TRAZODONE 100 MG TABLET PO SCH (20:07)
[2020-07-25] MEDS: LORAZEPAM 1 MG TABLET PO PRN (20:19)
[2020-07-25] MEDS: MAGNESIUM HYDROXIDE 30 ML LIQUID UDC PO PRN (20:59)
[2020-07-25] MEDS: ZOLPIDEM 5 MG TABLET PO PRN (21:04)
[2020-07-26] MEDS: CYCLOBENZAPRINE HCL 10 MG TABLET PO PRN (05:47)
--- NOTE | 2020-07-26 05:51 | NUR ---
Received Pt in the dining room interacting with her peers. A+Ox4, reports decreasing depression but "crushing anxiety and pain." Reported anxiety due to her declining marital status, but denies SI and verbally contracts for safety. Presents with superficially bright affect and was observed laughing and interacting appropriately, them tearful and perseverating on the events that brought her to the hospital. Pt is attention-seeking, hyperverbal, and somatic. Pt is frequently seeking of prn medications: Ativan 1mg administered at 2019 for increased anxiety, effective. [place] 10/325 at 2019 for 10/10 leg pain, minimally effective. MOM at 2058 for c/o constipation (no BM x5 days), ineffective. Ambien 5mg at 2103 for c/o insomnia, eventually effective. Meclizine at 2153 for c/o dizziness, effective. Ultram 50mg at 2156 for unrelieved leg pain, effective. Flexeril 10mg at 0545, effective. VS stable. Slept 6 hours.
[2020-07-26] MEDS: PANTOPRAZOLE SODIUM 40 MG TABLET.DR PO SCH (06:09)
[2020-07-26 07:30] VITALS: BP 91/52
[2020-07-26] MEDS: METOPROLOL TARTRATE 25 MG TABLET PO SCH ×2 (09:00→16:19)
[2020-07-26] MEDS: FLUTICASONE/VILANTEROL 1 EACH BLST.W.DEV INH SCH (09:00)
[2020-07-26] MEDS: SERTRALINE HCL 100 MG TABLET PO SCH (09:33)
[2020-07-26] MEDS: CHOLECALCIFEROL 1,000 UNIT TABLET PO SCH (09:34)
[2020-07-26] MEDS: CLONAZEPAM 0.5 MG TABLET PO SCH ×2 (09:34→16:19)
[2020-07-26] MEDS: ASPIRIN EC 325 MG TABLET.DR PO SCH (09:34)
[2020-07-26] MEDS: NUTRISOURCE FIBER 4 GM PACKET PO SCH ×3 (09:35→16:20)
[2020-07-26] MEDS: SENNOSIDES/DOCUSATE SODIUM TABLET PO SCH (09:36)
[2020-07-26] MEDS: MAGNESIUM HYDROXIDE 30 ML LIQUID UDC PO PRN (13:17)
[2020-07-26] MEDS: HYDROCODONE/APAP 10-325 MG TABLET PO PRN (13:18)
[2020-07-26 15:00] VITALS: BP 112/65
[2020-07-26] MEDS ORDERED: SENNOSIDES 1 TABLET PO ONE (16:30)
[2020-07-26 20:01] VITALS: BP 111/62
[2020-07-26] MEDS: SIMVASTATIN 40 MG TABLET PO SCH (20:03)
[2020-07-26] MEDS: TRAZODONE 100 MG TABLET PO SCH (20:04)
[2020-07-26] MEDS: ZOLPIDEM 5 MG TABLET PO PRN ×2 (21:08→23:49)
[2020-07-27] MEDS: CYCLOBENZAPRINE HCL 10 MG TABLET PO PRN (05:58)
[2020-07-27] MEDS: PANTOPRAZOLE SODIUM 40 MG TABLET.DR PO SCH (06:07)
[2020-07-27 07:30] VITALS: BP 109/74
--- NOTE | 2020-07-27 08:11 | NUR ---
Discharge Note: Patient will be discharged [facility], [facility] [place] [address] ([phone]) via ambulance transportation at 1PM. Karate Black Belt spoke with Binh, Substation Operator Chief at [facility] ([phone]), and he confirmed that patient will be accepted at their facility today. Patients sister Melisa ([phone]) is aware and agreeable with discharge plan. Patient is alert and oriented x4. Patient is not able to plan for self-care at this time but is willing to accept care provided for her at the facility. Patient denies suicidal or homicidal ideation. Patient is aware and agreeable with discharge plans. Patient will follow-up with (Psychiatrist) Dr. Lew and (Barrel Waterer) Dr. Luong at [facility]. Patient was provided referrals to the following substance abuse programs for substance abuse: [facility] Substance Abuse Self-helpline ([phone]); [facility] [address] [place] [address] ([phone]); [facility] [address] [facility] [address] ([phone]); [facility] ([phone]); [facility] ([phone]); [facility] ([phone]); [facility] ([phone]). This provided Regional Trainer resources: [facility] ([phone]), [facility] ([phone]), [facility] ([phone]), [facility] ([phone]). Patient signed the homeless waiver upon discharge and a copy was placed in the chart. Homeless resources were provided and include 211 information line for shelters and homeless resources. A copy of all resources given to patient was also placed in the chart. Patient presented with euthymic mood and congruent affect.
[2020-07-27] MEDS: CLONAZEPAM 0.5 MG TABLET PO SCH (08:31)
[2020-07-27] MEDS: SENNOSIDES/DOCUSATE SODIUM TABLET PO SCH (08:31)
[2020-07-27] MEDS: SERTRALINE HCL 100 MG TABLET PO SCH (08:32)
[2020-07-27] MEDS: CHOLECALCIFEROL 1,000 UNIT TABLET PO SCH (08:32)
[2020-07-27] MEDS: ASPIRIN EC 325 MG TABLET.DR PO SCH (08:33)
[2020-07-27 08:34] VITALS: BP 109/74
[2020-07-27] MEDS: FLUTICASONE/VILANTEROL 1 EACH BLST.W.DEV INH SCH (08:34)
[2020-07-27] MEDS: NUTRISOURCE FIBER 4 GM PACKET PO SCH ×2 (08:34→13:15)
[2020-07-27] MEDS: METOPROLOL TARTRATE 25 MG TABLET PO SCH (08:34)
--- NOTE | 2020-07-27 12:15 | NUR ---
GPS: Nursing Notes: Asking For More Laxatives: Patient continue to be asking for more laxatives now that she is going to be discharge, stating "I did not have a Bowel movement for six days..", according to our record patient had one last night, one on Monday and one on Monday, Eusebia Pineda, PORCELAIN ENAMEL SPRAYER informed regarding patient wanting more laxatives, stated that the patient have several BMs during the week, and holiday [place] can follow up with her care, continue with discharge planning, continue wit treatment plan.
--- NOTE | 2020-07-27 14:30 | NUR ---
GPS: Nursing Notes: Discharge Notes: Patient is awake and responding to her name, cooperative with nursing care, compliant with her medications, following staff directions, A/Ox4, denies any SI/HI, denies AH/VH, denies any pain or discomfort at this time, denies any SOB. Patient discharge to [facility] [place] [address] [place] [address] , report given to facility's nurse - ANGELITA Duarte auto rental supervisor, transported to facility via ambulance, took his belongings and valuables with her, Patient's sister - Melisa informed of discharge by director of social media marketing. Patient will follow-up with (Psychiatrist) Dr. Lew and (Bill Distributor) Dr. Luong at [facility]. Patient was provided referrals to the following substance abuse programs for substance abuse: [facility] Substance Abuse Self-helpline ([phone]); [facility] [address] [place] [address] ([phone]); [facility] [address] [facility] [address] ([phone]); [facility] ([phone]); [facility] ([phone]); [facility] ([phone]); [facility] ([phone]). This SW provided Fine Arts Chair resources: [facility] ([phone]), [facility]di ([phone]), [facility] Gallow[facility] ([phone]), [facility] ([phone]). Patient signed the homeless waiver upon discharge and a copy was placed in the chart. Homeless resources were provided and include 211 information line for shelters and homeless resources.
== END 2020-07-27 14:30 | DRG 885 ==
LOC: ER 15:33 → GPSOV3 20:22 → GPS 07-17 18:24 → MEDSURG3 07-21 10:01 → GPSOV3 07-21 10:24 → GPS 07-23 14:42 → GPSOV3 07-23 15:06 → GPS 07-23 16:19
PROVIDERS: ADMIT Psychiatry & Neurology Psychiatry
DX: F33.2 Major depressive disorder, recurrent severe without psychotic features (principal); Z86.73 Personal history of transient ischemic attack (TIA), and cerebral infarction without residual deficits; E78.5 Hyperlipidemia, unspecified; E83.42 Hypomagnesemia; Z88.1 Allergy status to other antibiotic agents; Z88.0 Allergy status to penicillin; E66.9 Obesity, unspecified; F41.0 Panic disorder [episodic paroxysmal anxiety]; G89.29 Other chronic pain; Z79.82 Long term (current) use of aspirin; Z82.49 Family history of ischemic heart disease and other diseases of the circulatory system; Z20.822 Contact with and (suspected) exposure to COVID-19; F41.9 Anxiety disorder, unspecified; M54.30 Sciatica, unspecified side; Z68.30 Body mass index [BMI] 30.0-30.9, adult; I10 Essential (primary) hypertension
CPT/HCPCS: 36415; 70030-TC; 83735; 84100; 84443; 85025; 87086; A4663; J8597; Q0162; Q0163